=== PATIENT | male | born 1970 | race Caucasian/White ===

== ENCOUNTER 2017-01-08 15:29 | Emergency (ER) | payer BC | END 2017-01-08 17:30 | disposition home or self-care (01) | LOC: ER 15:29 | DX: J10.1 Influenza due to other identified influenza virus with other respiratory manifestations (principal); F17.220 Nicotine dependence, chewing tobacco, uncomplicated; Z88.5 Allergy status to narcotic agent | CPT/HCPCS: 87502; 87651 ==